=== PATIENT | female | born 1950 | race Caucasian/White ===

== ENCOUNTER 2017-03-16 17:22 | Emergency (ER) | payer OTHER ==
[2017-03-16 17:37] VITALS: BP 111/90; PULSE 85; TEMP 98.3; BMI 25.0
[2017-03-16] MEDS ORDERED: IBUPROFEN 600 MG TABLET (FP) PO ONE ×2 (17:55→17:56)
--- NOTE | 2017-03-16 19:03 | PDOC ---
History of Present Illness - General Chief Complaint: Injury Stated Complaint: LEFT WRIST PAIN Time Seen by Provider: 03/16/17 17:31 - History of Present Illness Initial Comments: 03/16/17 19:00 66 F with no significant PMH presents to ER with L wrist pain after falling. Pt states that she tripped and fell forward, landing onto her L outstretched hand. Pt denies headstrike/LOC. She states that she broke her fall completely with her left hand. Denies any other injuries. Denies FOSTER/N/V. Denies neck pain. Denies pain in her legs. Was able to get up and ambulate immediately after. No CP/SOB. No palpitations. Denies lightheadedness prior to or after falling. Past History - Past Medical History Allergies/Adverse Reactions: Allergies Allergy/AdvReac Type Severity Reaction Status Date / Time Penicillins Allergy Verified 10/20/12 20:03 MINOCINS Allergy Uncoded 05/21/13 15:39 Home Medications: Ambulatory Orders Cephalexin Monohydrate [Keflex -] 500 mg PO Q8H #30 capsule 05/21/13 Oxycodone HCl/Acetaminophen [Percocet 5-325 mg Tablet -] 1 - 2 tab PO Q6H PRN # 20 tablet 05/27/13 Oxycodone HCl/Acetaminophen [Percocet 5-325 mg Tablet] 1 tab PO Q4H PRN #12 tablet MDD 3 tabs 03/16/17 Asthma: Yes Diabetes: No Disorders: Yes (UTI'S) Kidney Stones: Yes Other medical history: ROSACEA - Suicide/Smoking/Psychosocial Hx Smoking Status: No Smoking History: Never smoked Number of Cigarettes Smoked Daily: 0 Hx Alcohol Use: Yes (OCCASIONAL ONLY) Drug/Substance Use Hx: No Substance Use Type: None Review of Systems - Review of Systems Comments:: 03/16/17 19:01 "GENERAL/CONSTITUTIONAL: No fever or chills. No weakness. HEAD, EYES, EARS, NOSE AND THROAT: No change in vision. No ear pain or discharge. No sore throat. CARDIOVASCULAR: No chest pain or shortness of breath. RESPIRATORY: No cough, wheezing, or hemoptysis. GASTROINTESTINAL: No nausea, vomiting, diarrhea or constipation. GENITOURINARY: No dysuria, frequency, or change in urination. MUSCULOSKELETAL: +L wrist pain and swelling SKIN: No rash NEUROLOGIC: No headache, vertigo, loss of consciousness, or change in strength/ sensation. ENDOCRINE: No increased thirst. No abnormal weight change. HEMATOLOGIC/LYMPHATIC: No anemia, easy bleeding, or history of blood clots. ALLERGIC/IMMUNOLOGIC: No hives or skin allergy. " *Physical Exam - Vital Signs Last Vital Signs Temp Pulse Resp BP Pulse Ox 98.3 F 85 15 111/90 100 03/16/17 17:28 03/16/17 17:28 03/16/17 17:28 03/16/17 17:28 03/16/17 17:28 - Physical Exam Comments: 03/16/17 19:01 "GENERAL: Awake, alert, and fully oriented, in no acute distress HEAD: No signs of trauma EYES: PERRLA, EOMI, sclera anicteric, conjunctiva clear ENT: Auricles normal inspection, hearing grossly normal, nares patent, oropharynx clear without exudates. Moist mucosa NECK: Nontender, no stepoffs, Normal ROM, supple, no lymphadenopathy, JVD, or masses LUNGS: Breath sounds equal, clear to auscultation bilaterally. No wheezes, and no crackles HEART: Regular rate and rhythm, normal S1 and S2, no murmurs, rubs or gallops ABDOMEN: Soft, nontender, normoactive bowel sounds. No guarding, no rebound. No masses EXTREMITIES: L wrist with effusion + deformity, bony tenderness over distal radius, no snuffbox tenderness, strength and sensation intact distally, distal pulses intact NEUROLOGICAL: Cranial nerves II through XII intact. 5/5 strength and sensation in all extremities, Normal speech, normal gait SKIN: Warm, Dry, normal turgor, no rashes or lesions noted. " ED Treatment Course - RADIOLOGY Radiology Studies Ordered: Category Date Time Status FOREARM- LEFT [RAD] Stat Radiology 03/16/17 18:18 Ordered WRIST W/HAND-LEFT* [RAD] Stat Radiology 03/16/17 18:18 Ordered - Medications Given in the ED: ED Medications Discontinued Medications Generic Name Dose Route Start Last Admin Trade Name Freq PRN Reason Stop Dose Admin Ibuprofen 600 mg 03/16/17 17:55 03/16/17 17:56 Motrin - PO 03/16/17 17:56 600 mg NOW ONE Administration Oxycodone/Acetaminophen 0.5 combo 03/16/17 18:17 03/16/17 18:28 Percocet 5/325 - PO 03/16/17 18:18 0.5 combo ONCE ONE Administration Medical Decision Making - Medical Decision Making 03/16/17 19:02 66 F with L wrist deformity s/p FOOSH. No evidence of head injury or c-spine injury on exam or history. Exam concerning for L colles' fx. - XR L wrist and forearm - Analgesia *DC/Admit/Observation/Transfer Diagnosis at time of Disposition: Colles' fracture of left radius Qualifiers: Encounter type: initial encounter Fracture type: closed Qualified Code(s): S52.532A - Colles' fracture of left radius, initial encounter for closed fracture - Discharge Dispostion Disposition: HOME Condition at time of disposition: Stable - Prescriptions Prescriptions: Oxycodone HCl/Acetaminophen [Percocet 5-325 mg Tablet] 1 tab PO Q4H PRN #12 tablet MDD 3 tabs PRN Reason: Severe Pain - Referrals Referrals: Cindy Weaver MD [Primary Care Provider] - Ricco Mcdonald MD [Staff Physician] - Call tomorrow - Patient Instructions Printed Discharge Instructions: Colles' Fracture Additional Instructions: Keep splint in place Elevate/ice to left wrist as much as possible Sling when up and around Call hand surgeon (Dr. Mcdonald or other) tomorrow to make a follow-up appointment within the next 48 hours Ibuprofen/acetaminophen/naproxen as needed for [id number] pain Percocet 5/325 up to 3 times a day as needed for severe pain
--- NOTE | 2017-03-16 19:15 | PDOC ---
*Physical Exam - Vital Signs Last Vital Signs Temp Pulse Resp BP Pulse Ox 98.3 F 85 15 111/90 100 03/16/17 17:28 03/16/17 17:28 03/16/17 17:28 03/16/17 17:28 03/16/17 17:28 ED Treatment Course - Medications Given in the ED: ED Medications Discontinued Medications Generic Name Dose Route Start Last Admin Trade Name Dharmesh PRN Reason Stop Dose Admin Ibuprofen 600 mg 03/16/17 17:55 03/16/17 17:56 Motrin - PO 03/16/17 17:56 600 mg NOW ONE Administration Oxycodone/Acetaminophen 0.5 combo 03/16/17 18:17 03/16/17 18:28 Percocet 5/325 - PO 03/16/17 18:18 0.5 combo ONCE ONE Administration Progress Note - Progress Note Progress Note: Care of this patient received from Dr. Noel. Left forearm/wrist x-ray performed: Fracture of the distal radius comminuted with posterior displacement. There is also an avulsion fracture of the ulnar styloid process. No other abnormality seen. Results discussed with the patient. Using Ortho-Glass splinting material, posterior short arm splint applied and secured with Ralf wraps. Neurovascular functioning intact after placement of the splint. Although the patient has had rotator cuff surgery by hand surgeon in the distant past, she has no current orthopedist/hand surgeon. 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 Patient states that she will also welcome referral to a local hand surgeon. Patient will be given referral information for . Patient should take ibuprofen/acetaminophen/naproxen as needed for mild-to- moderate pain. Percocet 5/325 up to 3 tablets a day should be used for severe pain; Percocet prescription (#12) transmitted to patient's pharmacy. The patient asked for 2 tablets to be used overnight if pain is severe and she was given these for use at home (patient lives alone and will be taking a cab home from the ER) *DC/Admit/Observation/Transfer Diagnosis at time of Disposition: Colles' fracture of left radius Qualifiers: Encounter type: initial encounter Fracture type: closed Qualified Code(s): S52.532A - Colles' fracture of left radius, initial encounter for closed fracture - Discharge Dispostion Disposition: HOME Condition at time of disposition: Stable - Prescriptions Prescriptions: Oxycodone HCl/Acetaminophen [Percocet 5-325 mg Tablet] 1 tab PO Q4H PRN #12 tablet MDD 3 tabs PRN Reason: Severe Pain - Referrals Referrals: Cindy Weaver MD [Primary Care Provider] - Ricco Mcdonald MD [Staff Physician] - Call tomorrow - Patient Instructions Printed Discharge Instructions: Colles' Fracture Additional Instructions: Keep splint in place Elevate/ice to left wrist as much as possible Sling when up and around Call hand surgeon (Dr. Mcdonald or other) tomorrow to make a follow-up appointment within the next 48 hours Ibuprofen/acetaminophen/naproxen as needed for [id number] pain Percocet 5/325 up to 3 times a day as needed for severe pain
== END 2017-03-16 20:06 | disposition home or self-care (01) ==
LOC: FER 17:22 → SUPCPDRO 17:22 → FER 20:06
DX: S52.532A Colles' fracture of left radius, initial encounter for closed fracture (principal); W18.39XA Other fall on same level, initial encounter; Y93.89 Activity, other specified; Y92.9 Unspecified place or not applicable; J45.909 Unspecified asthma, uncomplicated; Z87.440 Personal history of urinary (tract) infections
CPT/HCPCS: 73090-TC-LT; 73110-TC-LT; 73130-TC-LT; 99283-25

== ENCOUNTER 2022-09-07 17:35 | Emergency (ER) | payer OTHER ==
[2022-09-07 17:51] VITALS: BP 152/73; PULSE 84; RESP 18; TEMP 98.8; BMI 25.0
[2022-09-07 18:27] LABS: EPITHELIAL CELLS RARE /hpf
== END 2022-09-07 18:25 | disposition home or self-care (01) ==
LOC: FER 17:35
DX: N30.00 Acute cystitis without hematuria (principal)
CPT/HCPCS: 81003; 81015; 99283-25